=== PATIENT | male | born 1980 | race Caucasian/White ===

== ENCOUNTER → 2017-01-26 | Outpatient (CLI) | payer OTHER ==
[~2017-01-26] MED LIST: HUMILIN; KEPPRA; LANTUS 10100 UNITS/ SQ; ZOLOFT100 MG PO
== END | disposition home or self-care (01) ==
LOC: NUC 06:57
DX: R63.0 Anorexia (principal); E16.2 Hypoglycemia, unspecified; E66.9 Obesity, unspecified
CPT/HCPCS: 78264; A9541